=== PATIENT | female | born 1985 | race Caucasian/White ===

== ENCOUNTER 2016-09-11 05:30 | Day surgery (SDC) ==
--- NOTE | 2016-09-10 09:53 | Diag Imaging Result Document ---
PROCEDURE NAME: CHEST-2 VIEWS - 09/10/2016 CHEST X-RAY 2 VIEWS: COMPARISON: 06/13/2016. FINDINGS: The lungs are normally expanded and clear. Heart size and mediastinal contours are normal. No pneumothorax or pleural effusion. IMPRESSION: Negative exam.
[2016-09-11] MEDS ORDERED: PEPCID ONE (05:46)
[2016-09-11] MEDS ORDERED: REGLAN ONE (05:46)
[2016-09-11] MEDS ORDERED: KEFZOL 1 GM/D5W 50 ML ONE (05:47)
[2016-09-11] MEDS ORDERED: VALIUM ONE (05:47)
[2016-09-11] MEDS: NS 1,000 ML ONE ×2 (05:50→06:02)
[2016-09-11] MEDS ORDERED: LR 1,000 ML ONE ×3 (05:56→11:58)
[2016-09-11] MEDS ORDERED: SENSORCAINE 0.25%/EPI 1:200,000 ONE (06:37)
[2016-09-11] MEDS ORDERED: SODIUM CHLORIDE 0.9% ONE (06:37)
[2016-09-11] MEDS ORDERED: FENTANYL ONE (08:05)
[2016-09-11] MEDS ORDERED: DIPRIVAN 1% ONE (08:05)
[2016-09-11] MEDS: MORPHINE ONE ×2 (08:15→08:20)
[2016-09-11] MEDS: PHENERGAN ONE ×2 (08:20→08:30)
[2016-09-11] MEDS ORDERED: MORPHINE ONE (08:30)
--- NOTE | 2016-09-11 08:42 | Diag Imaging Result Document ---
PROCEDURE NAME: OPERATIVE CHOLANGIOGRAM - 09/11/2016 INTRAOPERATIVE CHOLANGIOGRAM, 09/11/2016: COMPARISON: None. FINDINGS: The exam was performed by the patient's surgeon. Contrast was infused into the cystic duct. There is outline of a normal common bile duct with good passage of contrast into the duodenum. IMPRESSION: Negative exam.
[2016-09-11] MEDS ORDERED: BENADRYL ONE (08:46)
--- NOTE | 2016-09-11 09:18 | OPERATIVE NOTE ---
PROCEDURE DATE: 09/11/2016 PREOPERATIVE DIAGNOSIS: Chronic acalculous cholecystitis. POSTOPERATIVE DIAGNOSIS: Chronic acalculous cholecystitis. PROCEDURE PERFORMED: Laparoscopic cholecystectomy with cholangiogram. SURGEON: Hudson Wood MD DESCRIPTION OF PROCEDURE: The patient was brought to the operating room and, after satisfactory induction of IV and endotracheal anesthesia, athrombic TEDs were placed. Her abdomen was broadly prepped and draped in the appropriate manner for laparoscopy. Initially, the infraumbilical area was infiltrated with 0.25% Marcaine with epinephrine. Dissection was taken sharply down through the skin and subcutaneous tissue. The fascia was tacked with 0 Surgilon and incised. Under direct visualization, a Chi trocar was placed. The abdomen was insufflated to 3-1/2 L of air. Again, after infiltration with Marcaine and epinephrine, one 10 and two 5 mm trocars were placed across the right epigastrium. The patient was repositioned. The gallbladder was grasped and retracted superiorly. It was seen to be thick walled and pale with evidence of cholesterolosis through the wall. The hilar structures were dissected. The cystic duct cholangiogram revealed good flow of contrast into the duodenum with no obstruction. The catheter was removed. The duct was doubly clipped and divided as was the cystic artery. The gallbladder was subsequently dissected from the liver bed with the use of monopolar scissors. On completion, it was freed up, placed in an EndoCatch bag, and removed. The subhepatic and subphrenic spaces were subsequently aspirated free of a small amount of bile and blood. All trocars were removed after abdominal deflation. The subumbilical incision underwent fascial closures of 0 Surgilon. All skin incisions were closed with subcuticular 4-0 Vicryl. Steri-Strips, Telfa, and Op-Sites were applied. The patient was awakened and extubated in the operating room and transferred to recovery. Estimated blood loss was about 10 mL.
[2016-09-11] MEDS ORDERED: ZOFRAN ONE ×2 (09:24→11:57)
[2016-09-11 10:09] VITALS: BP 127/80
[2016-09-11] MEDS ORDERED: NORCURON ONE (11:57)
[2016-09-11] MEDS ORDERED: NEOSTIGMINE ONE (11:57)
[2016-09-11] MEDS ORDERED: SODIUM CHLORIDE 0.9% 10 ML ONE (11:57)
[2016-09-11] MEDS ORDERED: QUELICIN (DOSE) ONE (11:58)
[2016-09-11] MEDS ORDERED: DECADRON ONE (11:58)
[2016-09-11] MEDS ORDERED: ROBINUL ONE (11:58)
[2016-09-11] MEDS ORDERED: XYLOCAINE-MPF 2% ONE (11:58)
== END 2016-09-11 09:45 | disposition home or self-care (01) ==
LOC: OPS 05:30
PROVIDERS: ATTEND Surgery
DX: K81.1 Chronic cholecystitis (principal); Z87.891 Personal history of nicotine dependence
CPT/HCPCS: 71020; 74300; 88304; J0330; J0690; J1100; J1200; J2270; J2405; J2550; J3010; J7030; J7120; Q9966; J2710

== ENCOUNTER 2016-09-13 17:52 | Emergency (ER) ==
[2016-09-13 18:12] LABS: MANUAL DIFF NEEDED? NO
[2016-09-13 18:16] LABS: BASO% 0.3 % (0.0-0.8); EOS# 0.23 X1000 (0.0-0.7); EOS% 2.3 % (0.0-10.0); HEMATOCRIT 40.4 % (37.0-47.0); IMM GRAN# 0.02 X1000 (0.0-0.04); IMM GRAN% 0.2 % (0.0-0.5); LYMPH# 2.95 X1000 (1.2-3.4); LYMPH% 29.1 % (20.5-51.1); MCH 32.8 PG (27-31); MCHC 34.7 g/dL (33-37); MCV 94.6 FL (81-99); MONO# 0.59 X1000 (0.11-0.59); MONO% 5.8 % (1.7-9.3); MPV 9.3 FL (7.4-10.4); NEUT% 62.3 % (42.2-75.2); PLT 242 X1000 (130-400); RBC 4.27 XMIL (4.2-5.4)
[2016-09-13 18:48] LABS: AGAP 15; ALBUMIN 3.9 g/dL (3.5-5.0); ALKALINE PHOSPHATASE 71 U/L (32-104); BUN 8 mg/dL (8-22); CALCIUM 8.6 mg/dL (8.8-10.2); CHLORIDE 105 mmol/L (98-107); COSMO 280; GOT 34 U/L (10-30); GPT 63 U/L (10-36); POTASSIUM 3.7 mmol/L (3.5-5.1); SODIUM 141 mmol/L (136-145); TCO2 21 mmol/L (25-35); TOTAL BILIRUBIN 0.22 mg/dL (0.20-1.00); TOTAL PROTEIN 6.7 g/dL (6.3-8.3)
--- NOTE | 2016-09-13 19:35 | PROVIDER DOCUMENTATION ---
HPI-Rash/Wound/ReCheck - General Source: patient - History of Present Illness-Dermatology Location: reports: other (belly button) Quality: reports: painful Onset/Duration: reports: 3 days ago Timing: reports: still present Similar Symptoms Previously?: No Recently seen or treated by another doctor?: No <Aurea Mullen - Last Filed: 09/13/16 19:30> <Criselda Byrnes - Last Filed: 09/13/16 21:42> - General Chief Complaint: Post Op Complaint Stated Complaint: POST OP FEVER Time Seen by Provider: 09/13/16 19:15 Allergies/Adverse Reactions: Allergies Allergy/AdvReac Type Severity Reaction Status Date / Time No Known Allergies Allergy Verified 09/11/16 05:34 - History of Present Illness-Dermatology Nature of Presenting Problem: 31 y/o f presents to the ed with a post-op complaint. per pt X 3 days ago she had her gallbladder removed. pt states since the surgery she has not been feeling well. pt c/o vomiting/nausea/incision pain & tenderness along with a productive cough. upon arrival pt does have redness/tenderness at incision site ( belly button). pt denies any fever/chills. (Aurea Mullen) Review of Systems - Adult - REVIEW OF SYSTEMS - ADULT Constitutional: reports: fever. denies: chills Respiratory: reports: cough (brown sputum). denies: shortness of breath Neurological: denies: dizziness/vertigo, headache/migraines <Aurea Mullen - Last Filed: 09/13/16 19:30> Past History - Adult - PAST MEDICAL HISTORY-ADULT Review of Records: reports: Old Records Reviewed, Nursing Assessment Review, Medications Reviewed Major Childhood Illnesses: reports: denies history Cardiovascular: reports: palpitations Respiratory: reports: denies history Gastrointestinal: reports: denies history Obstetrical/Gynecological: reports: denies history Genitourinary: reports: denies history Musculoskeletal: reports: denies history Neurological: reports: denies history Endocrine/Immune: reports: denies history Other Conditions: reports: denies history - PRIOR SURGERIES/PROCEDURES Surgical/Procedure History: reports: appendectomy, hysterectomy, BTL, other ( tubal ligation) - IMMUNIZATION STATUS Childhood Immunizations: See Nurse Assessment Flu Vaccine: See Nurse Assessment - FAMILY HISTORY Family History: reviewed, not pertinent - SOCIAL HISTORY Smoking: cigarettes, less than 1 pack/day Provider spent 3-5 mins advising pt. on dangers of tobacco.: Discussed manners to quit use, and f/u contacts for add'l counseling. <Aurea Mullen - Last Filed: 09/13/16 19:30> Physical Exam-General - PHYSICAL EXAM-ADULT Initial Vital Signs Reviewed: Yes - CONSTITUTIONAL General Appearance: alert, no apparent distress - EYES Eyes: PERRL/EOMI, pink conjunctivae, fundi clear, no AV nicking - HEAD, EARS, NOSE, MOUTH & THROAT HENMT: normocephalic/atraumatic, moist mucous membranes, normal ENT inspection - NECK Neck: non-tender, full range of motion, supple - RESPIRATORY Respiratory: chest non-tender, lungs clear, normal breath sounds - CARDIOVASCULAR Cardiovascular: normal peripheral pulses, regular rate, rhythm - GASTROINTESTINAL (ABDOMEN) Abdominal Exam: normal bowel sounds, tenderness (umbilicus), other (umbilicus erythema/ incision 5.5 -7.5 cm) - MUSCULOSKELETAL Back Exam: normal inspection - SKIN Integumentary: normal turgor, warm/dry, abrasion(s) - PSYCHIATRIC Psych/Mental Status: normal mood/affect, normal thought content, normal thought process, oriented x 3 <Aurea Mullen - Last Filed: 09/13/16 19:30> Progress - XRAY 1 XRAY Study: Chest XRAY Interpretation: No PNA - CT/MRI 1 CT Study: Abdomen, Pelvis Impression: See EMR Report (Expected postsurgical changes in RUQ. No evidence of biloma or abscess. Likely constipation. Otherwise, unremarkable. -per Dr. Parker) - CHANGE OF SHIFT REPORT (ED Provider) Report Given and Care Transferred to:: Mahendra Gongora PA-C Time of Transfer: 21:24 Items Pending: XRAY Results <Criselad Byrnes - Last Filed: 09/13/16 21:42> Departure <Aurea Mullen - Last Filed: 09/13/16 19:30> - Departure Time of Disposition Order: 21:40 Certified Medical Emergency: Emergent <Criselda Byrnes - Last Filed: 09/13/16 21:42> - Departure DIAGNOSIS: Postoperative fever Constipation Qualifiers: Constipation type: unspecified constipation type Qualified Code(s): K59.00 - Constipation, unspecified Disposition: HOME Condition: Stable Additional Instructions: Take medications as directed. Follow up with Dr. Conn on Thursday for recheck. Return if symptoms get worse. ED Follow Up Instructions: You have been treated by a care provider in the Emergency Department. These instructions are being provided to you so you can have an understanding of how to care for yourself upon discharge. Upon discharge from the Emergency Department, you are responsible for making arrangements for follow-up care by a physician of your choice. Take all prescribed medications as directed. Return to the Emergency Department immediately for any new or worsening symptoms. You may call the Physician Referral phone number at [phone] to obtain a list of Physicians who are taking new patients. Prescriptions: Sodium Chloride/Nahco3/KCl/Peg [Peg-3350 Solution] 4,000 ml PO ONCE #1 soln.[id number] Referrals: Hudson Wood MD [Primary Care Provider] - Attestation - Scribe Verification/Attestation Scribe:: Aurea Mullen Scribe documention review:: This chart was documented by a scribe and accurately reflects the service the provider performed and the decisions made by the provider. - Physician/ Mid-level Attestation Patient care was provided by Mid-level provider (HAND SILVERING SUPERVISOR/PA):: Yes Mid-level provider:: Criselda Byrnes Mid-level documentation review:: The Mid-level provider documentation, treatment plan and medical decision making was reviewed by the physician who agrees with all treatment and medical decision making by the P. <Criselda Byrnes - Last Filed: 09/13/16 21:42> Physician Attestation
[2016-09-13 20:04] LABS: URINE CULTURE NEEDED? NO; URINE MICRO REVIEW NEEDED? NO; URINE SOURCE CLEAN CATCH
[2016-09-13 20:08] LABS: BILIRUBIN URINE NEGATIVE (NEGATIVE); BLOOD URINE NEGATIVE (NEGATIVE); COLOR YELLOW; GLUCOSE URINE NEGATIVE (NEGATIVE); LEUKOCYTES URINE NEGATIVE (NEGATIVE); NITRITE URINE NEGATIVE (NEGATIVE); PROTEIN URINE NEGATIVE (NEGATIVE); SP GRAVITY URINE 1.017; TURBIDITY URINE CLEAR (CLEAR); UR EPITHELIAL CELLS <10 /HPF (<10); URINE BACTERIA 1+ /HPF; URINE RBC <10 /HPF (<10); URINE WBC <10 /HPF (<10); UROBILINOGEN URINE NORMAL (NORMAL)
[2016-09-13 21:49] VITALS: BP 128/80
--- NOTE | 2016-09-13 23:32 | Diag Imaging Result Document ---
PROCEDURE NAME: CT ABD/PELVIS W/ IV CONT ONLY - 09/13/2016 CT ABDOMEN AND PELVIS WITH IV CONTRAST: COMPARISON: 08/07/2016. FINDINGS: There has been a recent cholecystectomy. Metallic clips are in the gallbladder fossa and there is trace fluid in the gallbladder fossa, which is expected this near to the surgery. There is no large fluid collection identified to indicate a biliary leak. There is trace nonloculated free fluid in the pelvis. The thick-walled left ovarian cyst seen on the previous study appears to be smaller. No abscess is identified. No free abdominal gas is identified. There are postsurgical changes in the subcutaneous fat overlying the right side of the abdomen. There is a fair amount of stool in the colon and rectum suggesting possible mild to moderate constipation. The remainder of the solid viscera of the abdomen and pelvis and the remainder of the GI tract are essentially stable and unremarkable. IMPRESSION: 1. Interval very recent cholecystectomy with expected postsurgical changes as described. 2. Suggestion of possible constipation. 3. Other incidental/nonacute findings detailed above. [facility]
--- NOTE | 2016-09-14 02:46 | Diag Imaging Result Document ---
PROCEDURE NAME: CHEST-2 VIEWS - 09/13/2016 PA AND LATERAL RADIOGRAPHS OF CHEST: COMPARISON: 09/10/2016. FINDINGS: The lungs are grossly clear. There is no discrete pleural fluid collection or evidence of pneumothorax. The cardiomediastinal silhouette and upper airway are grossly unremarkable. IMPRESSION: No evidence of acute chest pathology.
== END 2016-09-13 21:58 | disposition home or self-care (01) ==
LOC: ED 17:52
DX: R50.82 Postprocedural fever (principal); K59.00 Constipation, unspecified; R11.2 Nausea with vomiting, unspecified; R10.9 Unspecified abdominal pain; R05 Cough; R09.3 Abnormal sputum; R10.819 Abdominal tenderness, unspecified site; L53.9 Erythematous condition, unspecified; F17.210 Nicotine dependence, cigarettes, uncomplicated; Z71.6 Tobacco abuse counseling; Z98.890 Other specified postprocedural states
CPT/HCPCS: 36415; 71020; 74177; 80053; 81001; 85025; 87804; Q9967

== ENCOUNTER 2017-01-18 21:04 | Inpatient (IN) ==
[2017-01-18] MEDS ORDERED: HEPARIN IV ONE (22:13)
[2017-01-18 22:48] LABS: MANUAL DIFF NEEDED? NO
[2017-01-18 22:50] LABS: BASO% 0.6 % (0.0-0.8); EOS# 0.38 X1000 (0.0-0.7); EOS% 4.3 % (0.0-10.0); HEMATOCRIT 43.6 % (37.0-47.0); HEMOGLOBIN 15.7 g/dL (12.0-16.0); IMM GRAN# 0.02 X1000 (0.0-0.04); IMM GRAN% 0.2 % (0.0-0.5); LYMPH# 2.84 X1000 (1.2-3.4); LYMPH% 32.2 % (20.5-51.1); MCH 33.7 PG (27-31); MCV 93.6 FL (81-99); MONO# 0.78 X1000 (0.11-0.59); MONO% 8.8 % (1.7-9.3); MPV 9.5 FL (7.4-10.4); NEUT% 53.9 % (42.2-75.2); PLT 245 X1000 (130-400); RBC 4.66 XMIL (4.2-5.4)
[2017-01-18 22:59] LABS: INR 1.02; PROTIME 10.7 Seconds (9.2-11.7); PTT 26.1 Seconds (22.0-36.0)
[2017-01-18] MEDS: HEPARIN 25,000 UNITS/D5W 25,000 UNIT/250 ML IV.SOLN IV SCH (23:19)
[2017-01-18 23:20] LABS: AGAP 13; ALBUMIN 4.1 g/dL (3.5-5.0); ALKALINE PHOSPHATASE 69 U/L (32-104); BUN 13 mg/dL (8-22); CALCIUM 8.8 mg/dL (8.8-10.2); CHLORIDE 103 mmol/L (98-107); COSMO 279; GOT 12 U/L (10-30); GPT 11 U/L (10-36); POTASSIUM 3.4 mmol/L (3.5-5.1); SODIUM 140 mmol/L (136-145); TCO2 24 mmol/L (25-35); TOTAL BILIRUBIN 0.18 mg/dL (0.20-1.00); TOTAL PROTEIN 7.2 g/dL (6.3-8.3)
[2017-01-18] MEDS: DILAUDID IV PRN (23:20)
[2017-01-19 00:38] LABS: URINE CULTURE NEEDED? NO; URINE MICRO REVIEW NEEDED? NO; URINE SOURCE CLEAN CATCH
[2017-01-19 00:43] LABS: BILIRUBIN URINE NEGATIVE (NEGATIVE); BLOOD URINE NEGATIVE (NEGATIVE); COLOR YELLOW; GLUCOSE URINE NEGATIVE (NEGATIVE); LEUKOCYTES URINE NEGATIVE (NEGATIVE); NITRITE URINE NEGATIVE (NEGATIVE); PROTEIN URINE NEGATIVE (NEGATIVE); TURBIDITY URINE CLEAR (CLEAR); UR EPITHELIAL CELLS <10 /HPF (<10); URINE BACTERIA NEGATIVE /HPF; URINE RBC <10 /HPF (<10); URINE WBC <10 /HPF (<10); UROBILINOGEN URINE NORMAL (NORMAL)
[2017-01-19] MEDS: DILAUDID IV PRN ×5 (01:43→12:20)
[2017-01-19] MEDS: BENADRYL IV PRN ×4 (03:41→19:47)
[2017-01-19] MEDS: ZOFRAN IV PRN ×4 (03:41→19:47)
[2017-01-19 04:11] LABS: BASO% 0.6 % (0.0-0.8); EOS# 0.41 X1000 (0.0-0.7); EOS% 4.1 % (0.0-10.0); HEMATOCRIT 39.2 % (37.0-47.0); HEMOGLOBIN 14.2 g/dL (12.0-16.0); IMM GRAN# 0.02 X1000 (0.0-0.04); IMM GRAN% 0.2 % (0.0-0.5); LYMPH# 4.42 X1000 (1.2-3.4); LYMPH% 44.4 % (20.5-51.1); MANUAL DIFF NEEDED? NO; MCH 34.3 PG (27-31); MCHC 36.2 g/dL (33-37); MCV 94.7 FL (81-99); MONO# 0.79 X1000 (0.11-0.59); MONO% 7.9 % (1.7-9.3); MPV 9.4 FL (7.4-10.4); NEUT% 42.8 % (42.2-75.2); PLT 220 X1000 (130-400); RBC 4.14 XMIL (4.2-5.4)
[2017-01-19] MEDS ORDERED: AYR NASAL SPRAY NAS ONE (07:41)
[2017-01-19] MEDS: XANAX PO SCH ×2 (08:04→20:51)
[2017-01-19] MEDS ORDERED: COUMADIN PO ONE (11:47)
[2017-01-19] MEDS: INVANZ 1 GM/NS 1 GM/50 ML IVPB IV SCH (13:08)
[2017-01-19] MEDS: NORCO-10 PO PRN ×2 (14:55→19:48)
[2017-01-19] MEDS ORDERED: BLISTEX MEDICATED BERRY LIP BALM TOP PRN (18:15)
[2017-01-20] MEDS: HEPARIN 25,000 UNITS/D5W 25,000 UNIT/250 ML IV.SOLN IV SCH ×3 (00:30→22:30)
[2017-01-20 06:23] LABS: INR 1.16; PROTIME 12.3 Seconds (9.2-11.7)
--- NOTE | 2017-01-20 08:13 | HISTORY AND PHYSICAL ---
PREOPERATIVE DIAGNOSIS: Deep vein thrombosis right arm from PICC line. PLAN: Admission. PICC removal. Anticoagulation therapy. Continuance of IV antibiotics. 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 The patient has symptomatic flank pain she had 40,000 count of E. coli that was resistant to Levaquin and Bactrim. She had been on oral Bactrim for 4 weeks without improvement. It appeared to be sensitive to Invanz. The patient had a PICC line placed last week but subsequently has developed after 48 hours pain in the right shoulder and neck area. There appears to be some clotting. The PICC has subsequently been removed in the emergency room. A peripheral IV was started. Invanz is continued. She will undergo Doppler studies in the morning with planned IV anticoagulation therapy and subsequent Coumadin therapy for 3 months' time. There is no evidence of cough or shortness of breath to indicate a pulmonary embolus. PAST HISTORY: She has had previous cholecystectomy. She is multiparous. ALLERGIES: She has no other allergies. PHYSICAL EXAMINATION: GENERAL: Reveals a young white female in moderate discomfort, complaining of pain in her right upper arm and neck. HEAD AND NECK: She is normocephalic, atraumatic. Pupils equal and reactive. Ear, nose, and throat is negative. CHEST: Clear. ABDOMEN: Soft, with active bowel sounds. : Negative. NEUROLOGICAL: Intact. IMPRESSION: Acute onset deep vein thrombosis with a PICC line in the right arm. PLAN: PICC line removal and anticoagulation therapy, with continuance of IV therapy for another 10 days. cc: Hudson Wood MD
[2017-01-20] MEDS: NORCO-10 PO PRN ×2 (10:04→21:09)
[2017-01-20] MEDS: XANAX PO SCH ×2 (10:04→22:27)
[2017-01-20] MEDS: ZOFRAN IV PRN ×2 (10:04→18:19)
[2017-01-20] MEDS: DEMEROL IV PRN ×4 (12:28→22:28)
[2017-01-20] MEDS: BENADRYL IV PRN ×2 (12:30→21:09)
[2017-01-20] MEDS: INVANZ 1 GM/NS 1 GM/50 ML IVPB IV SCH (14:36)
[2017-01-20] MEDS: COUMADIN PO SCH (21:09)
[2017-01-21] MEDS: DEMEROL IV PRN ×7 (03:37→21:40)
[2017-01-21 05:44] LABS: INR 1.39; PROTIME 14.9 Seconds (9.2-11.7)
[2017-01-21] MEDS ORDERED: HEPARIN 25,000 UNITS/D5W 25,000 UNIT/250 ML IV.SOLN IV SCH (06:33)
--- NOTE | 2017-01-21 07:45 | Extremity Venous Study ---
PROCEDURE NAME: Venous U/S Right Arm - 01/19/2017 REQUESTING PHYSICIAN: Hudson Wood MD SENIOR TELLER: Omer INDICATIONS: PICC malfunction. PROCEDURE: Right upper extremity venous duplex color-flow imaging. EQUIPMENT: [employer] Vivid E9 Ultrasound System with a 9 LD transducer. FINDINGS: Images of the right upper right upper extremity venous system with comparison to the left subclavian vein were obtained in both sagittal and transverse planes. Doppler was used to evaluate veins for spontaneity, phasicity, respiratory excursion, and digital augmentation. RESULTS: There appears to be it deep venous thrombosis of the right brachial vein. There also appears to be a superficial venous thrombosis of the right basilic vein. INTERPRETATION: Deep vein thrombosis noted in the right brachial vein, and superficial venous thrombosis noted in the right basilic vein. cc: MD Hudson Avilez MD [facility]
[2017-01-21] MEDS: XANAX PO SCH ×2 (09:22→20:14)
[2017-01-21] MEDS: INVANZ 1 GM/NS 1 GM/50 ML IVPB IV SCH (13:33)
[2017-01-21] MEDS: BENADRYL IV PRN ×2 (13:34→21:40)
[2017-01-21] MEDS: ZOFRAN IV PRN ×2 (16:01→21:39)
[2017-01-21] MEDS: COUMADIN PO SCH (20:14)
[2017-01-22] MEDS: ZOFRAN IV PRN ×2 (05:57→11:01)
[2017-01-22] MEDS: DEMEROL IV PRN ×3 (05:57→11:01)
[2017-01-22 06:14] LABS: INR 2.49; PROTIME 27.7 Seconds (9.2-11.7)
[2017-01-22] MEDS ORDERED: HEPARIN 25,000 UNITS/D5W 25,000 UNIT/250 ML IV.SOLN IV SCH (07:03)
[2017-01-22] MEDS: XANAX PO SCH (08:37)
[2017-01-22] MEDS: INVANZ 1 GM/NS 1 GM/50 ML IVPB IV SCH (10:47)
[2017-01-22 11:35] VITALS: BP 126/75
--- NOTE | 2017-01-29 10:40 | DISCHARGE SUMMARY ---
ADMISSION DATE: 01/18/2017 DISCHARGE DATE: 01/22/2017 DIAGNOSIS: Deep venous thrombosis, right arm, secondary to peripherally-inserted central catheter line for intravenous antibiotic treatment. 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 Dr. Juan had recommended Invanz via PICC line for 2 weeks. The PICC line had been placed 48 hours prior as an outpatient. The patient subsequently developed pain and swelling in her right upper arm and neck, and was admitted through the emergency room. The PICC line was removed. Peripheral IV was started. Ultrasound revealed a DVT in the right arm on the day after admission. She was systemically anticoagulated with IV heparin on the protocol, and subsequently placed on Coumadin. She did improve somewhat during her hospitalization, developed no evidence of PTE, and was subsequently allowed home when she became therapeutically anticoagulated on 01/22/2017. She will be seen in the office in 1 week's time. Plan is for Coumadin therapy for 3 months. cc: Hudson Wood MD
== END 2017-01-22 12:04 | disposition home health service (06) ==
LOC: DIRADM 21:04 → 4N 21:18
PROVIDERS: ADMIT Surgery; ATTEND Surgery